=== PATIENT | female | born 1935 | race Caucasian/White ===

== ENCOUNTER 2021-06-20 11:34 | Emergency (ER) | payer MEDICARE, MEDICAID ==
[~2021-06-20] VITALS: Ht 175.3 cm; Wt 70.5 kg
[~2021-06-20 11:34] MED LIST: LIDOcaine 1% W/epiNEPHrine 1:100,000 20ml vial ONE
[2021-06-20] MEDS ORDERED: iohexol 300mg/ml 100ml inj. ONE (12:51)
--- NOTE | 2021-06-20 13:15 | NUR ---
AT BEDSIDE TO PLACE WEBSTERMEGNT. PT TOLERATED WELL. REPEAT XRAY ORDERED FOR 1430. PT NOW REPORTS THAT BREATHING IS LESS PAINFUL, RR 16.
[2021-06-20] MEDS ORDERED: HYDROcodone/acetaminophen 10/325mg tab PO ONE (13:45)
[2021-06-20] MEDS ORDERED: HYDR-3972 PO (13:52)
[2021-06-20] MEDS ORDERED: ONDA4TAB12 PO (13:52)
[2021-06-20 14:30] VITALS: BP 158/76
--- NOTE | 2021-06-20 14:59 | NUR ---
DAUGHTER UPDATED ON PT POC AND STATUS. GIVEN SPECIFIC INSTRUCTIONS TO RETURN TO ED TOMORROW MORNING FOR REPEAT XRAY. THORAVENT REMAINS IN PLACE. PT REPORTS DECREASED PAIN WITH BREATHING. RR EVEN AND UNLABORED.
== END 2021-06-20 15:10 | disposition home or self-care (01) ==
LOC: ER 11:35
DX: S20.229A Contusion of unspecified back wall of thorax, initial encounter (principal); J93.9 Pneumothorax, unspecified; W18.30XA Fall on same level, unspecified, initial encounter; Y93.89 Activity, other specified; Y92.89 Other specified places as the place of occurrence of the external cause; Y99.8 Other external cause status; Z79.899 Other long term (current) drug therapy
CPT/HCPCS: 71045; 71260; 99285; Q9967; J3490

== ENCOUNTER 2021-06-21 07:27 | Emergency (ER) | payer MEDICARE, MEDICAID ==
[~2021-06-21] VITALS: Ht 170.2 cm; Wt 72.0 kg
[~2021-06-21 07:27] MED LIST changes: +HYDR-3972 PO; -LIDOcaine 1% W/epiNEPHrine 1:100,000 20ml vial ONE; +ONDA4TAB12 PO
[2021-06-21 09:37] VITALS: BP 130/32
== END 2021-06-21 09:39 | disposition home or self-care (01) ==
LOC: ER 07:27
DX: J93.9 Pneumothorax, unspecified (principal); Z79.899 Other long term (current) drug therapy; Z97.8 Presence of other specified devices
CPT/HCPCS: 71045; 99283

== ENCOUNTER 2021-06-22 07:22 | Emergency (ER) | payer MEDICARE, MEDICAID ==
[~2021-06-22] VITALS: Ht 167.6 cm; Wt 72.7 kg
[2021-06-22 07:54] VITALS: BP 130/59
--- NOTE | 2021-06-22 08:09 | NUR ---
xray at bedside
--- NOTE | 2021-06-22 08:35 | NUR ---
provider at bedside.
== END 2021-06-22 09:35 | disposition home or self-care (01) ==
LOC: ER 07:23
DX: J93.9 Pneumothorax, unspecified (principal)
CPT/HCPCS: 71045; 99284

== ENCOUNTER 2022-01-09 16:36 | Emergency (ER) | payer MEDICARE, MEDICAID ==
[~2022-01-09] VITALS: Ht 172.7 cm; Wt 70.5 kg
[~2022-01-09 16:36] MED LIST changes: -HYDR-3972 PO
[2022-01-09 18:21] LABS: CLARITY,URINE CLOUDY (Clear); COLOR,URINE YELLOW (Yellow); GLUCOSE, URINE NEGATIVE (Neg); KETONES,URINE TRACE mg/dl (Neg); LEUKOCYTE ESTERASE ,URINE TRACE (Neg); NITRITES, URINE POSITIVE (Neg); OCCULT BLOOD,URINE NEGATIVE (Neg); PROTEIN,URINE TRACE mg/dl (Neg); UROBILINOGEN,URINE 0.2 E.U/dL (0.2-1.0)
[2022-01-09 18:25] LABS: UA COLLECTION TYPE CLN CATCH MIDSTREAM
[2022-01-09 18:28] LABS: BACTERIA,URINE 4+ /HPF (Neg); CAL OXALATE CRYSTALS 3+ /HPF (NEGATIVE); SQUAMOUS EPITHELIAL CELL,UR FEW /LPF (FEW)
[2022-01-09 18:44] LABS: BASOPHILS % (AUTO) 0.4 % (0-1); EOSINOPHILS # (AUTO) 0.1 X10'3 (0-0.9); EOSINOPHILS % (AUTO) 0.6 % (0-6); HEMATOCRIT 41.9 % (35.0-45.0); HEMOGLOBIN 14.5 g/dl (12.0-16.0); LYMPHOCYTES # (AUTO) 1.8 X10'3 (1.1-4.8); LYMPHOCYTES % (AUTO) 17.4 % (21-51); MEAN CORPUSCULAR HEMOGLOBIN 30.6 PG (27.0-31.0); MEAN CORPUSCULAR HGB CONC 34.6 g/dL (33.0-36.5); MEAN CORPUSCULAR VOLUME 88.4 FL (78-98); MEAN PLATELET VOLUME 7.7 FL (7.4-10.4); MONOCYTES # (AUTO) 0.8 X10'3 (0-0.9); MONOCYTES % (AUTO) 7.4 % (2-12); NEUTROPHILS # (AUTO) 7.6 X10'3 (1.8-7.7); NEUTROPHILS % (AUTO) 74.2 % (42-75); PLATELET COUNT 227 X10'3 (140-440); RED BLOOD COUNT 4.73 X10'6 (4.20-5.60); RED CELL DISTRIBUTION WIDTH 13.1 % (11.5-14.5); WHITE BLOOD COUNT 10.2 X10'3 (4.5-11.0)
[2022-01-09 18:54] LABS: ALANINE AMINOTRANSFERASE 14 U/L (12-78); ALBUMIN 4.1 G/DL (3.4-5.0); ALBUMIN/GLOBULIN RATIO 1.4 (1.1-1.5); ALKALINE PHOSPHATASE 72 IU/L (46-116); ANION GAP 8 (8-16); ASPARTATE AMINO TRANSFERASE 18 U/L (10-37); BILIRUBIN,TOTAL 0.7 MG/DL (0.1-1.0); BLOOD UREA NITROGEN 19 MG/DL (7-18); BUN/CREATININE RATIO 20.9 (6.6-38.0); CALCIUM 9.6 MG/DL (8.5-10.1); CHLORIDE 103 MMOL/L (99-107); CREATININE 0.91 MG/DL (0.40-0.90); GLUCOSE 117 MG/DL (70-104); POTASSIUM 3.7 MMOL/L (3.5-5.1); SODIUM 140 MMOL/L (135-145); TOTAL CARBON DIOXIDE 29.2 MMOL/L (24-32); TOTAL PROTEIN 7.1 G/DL (6.4-8.2); eGFR 58 ML/MIN
[2022-01-09 20:04] VITALS: BP 165/73
[2022-01-09] MEDS ORDERED: cephalexin 500mg capsule PO ONE (20:30)
[2022-01-09] MEDS ORDERED: CEPH500C81 PO (21:56)
== END 2022-01-09 22:12 | disposition home or self-care (01) ==
LOC: ER 16:37
DX: N30.00 Acute cystitis without hematuria (principal); R41.0 Disorientation, unspecified; Z79.899 Other long term (current) drug therapy
CPT/HCPCS: 36415; 70450; 80053; 81001; 83605; 84145; 85025; 87077; 87088; 87186; 99284

== ENCOUNTER 2022-01-14 09:02 | Emergency (ER) | payer MEDICARE, MEDICAID ==
[~2022-01-14] VITALS: Ht 170.2 cm; Wt 70.0 kg
[~2022-01-14 09:02] MED LIST changes: +CEPH500C81 PO
[2022-01-14] MEDS ORDERED: normal saline 1000ML IV soln IV ONE (09:15)
[2022-01-14] MEDS ORDERED: acetaminophen 325mg tablet PO STA (09:15)
--- NOTE | 2022-01-14 09:20 | NUR ---
ishan cervantes in the [facility],called pharmacy. Addendum: 01/14/22 at 0920 by CHARLIE incorrect patient.
[2022-01-14 09:47] LABS: BASOPHILS % (AUTO) 0.6 % (0-1); EOSINOPHILS # (AUTO) 0.1 X10'3 (0-0.9); EOSINOPHILS % (AUTO) 1.7 % (0-6); HEMATOCRIT 40.7 % (35.0-45.0); HEMOGLOBIN 13.8 g/dl (12.0-16.0); LYMPHOCYTES # (AUTO) 1.2 X10'3 (1.1-4.8); LYMPHOCYTES % (AUTO) 17.6 % (21-51); MEAN CORPUSCULAR VOLUME 88.2 FL (78-98); MEAN PLATELET VOLUME 7.7 FL (7.4-10.4); MONOCYTES # (AUTO) 0.6 X10'3 (0-0.9); NEUTROPHILS # (AUTO) 5.1 X10'3 (1.8-7.7); NEUTROPHILS % (AUTO) 72.1 % (42-75); PLATELET COUNT 238 X10'3 (140-440); RED BLOOD COUNT 4.61 X10'6 (4.20-5.60); RED CELL DISTRIBUTION WIDTH 13.2 % (11.5-14.5)
[2022-01-14 09:56] LABS: ALANINE AMINOTRANSFERASE 8 U/L (12-78); ALBUMIN 3.7 G/DL (3.4-5.0); ALBUMIN/GLOBULIN RATIO 1.4 (1.1-1.5); ALKALINE PHOSPHATASE 66 IU/L (46-116); ANION GAP 6 (8-16); ASPARTATE AMINO TRANSFERASE 19 U/L (10-37); BILIRUBIN,TOTAL 0.5 MG/DL (0.1-1.0); BLOOD UREA NITROGEN 9 MG/DL (7-18); BUN/CREATININE RATIO 11.7 (6.6-38.0); CALCIUM 9.2 MG/DL (8.5-10.1); CHLORIDE 104 MMOL/L (99-107); CREATININE 0.77 MG/DL (0.40-0.90); GLUCOSE 143 MG/DL (70-104); POTASSIUM 3.7 MMOL/L (3.5-5.1); SODIUM 137 MMOL/L (135-145); TOTAL CARBON DIOXIDE 27.4 MMOL/L (24-32); TOTAL PROTEIN 6.4 G/DL (6.4-8.2); eGFR 71 ML/MIN
[2022-01-14 10:21] LABS: CLARITY,URINE CLEAR (Clear); COLOR,URINE YELLOW (Yellow); GLUCOSE, URINE NEGATIVE (Neg); KETONES,URINE NEGATIVE (Neg); LEUKOCYTE ESTERASE ,URINE NEGATIVE (Neg); NITRITES, URINE NEGATIVE (Neg); OCCULT BLOOD,URINE TRACE-INTACT (Neg); PH,URINE 7.5 (4.8-8.0); PROTEIN,URINE NEGATIVE (Neg); UROBILINOGEN,URINE 0.2 E.U/dL (0.2-1.0)
[2022-01-14 10:36] LABS: UA COLLECTION TYPE STRAIGHT CATH
[2022-01-14 10:38] LABS: BACTERIA,URINE NONE SEEN /HPF (Neg); MUCUS STRANDS NONE SEEN /LPF (Neg); SQUAMOUS EPITHELIAL CELL,UR FEW /LPF (FEW); WBC,URINE 0-4 /HPF (0-4)
--- NOTE | 2022-01-14 12:34 | NUR ---
relieving RN for break, pt is is resting quietly on family silvia at bedside,
[2022-01-14 12:35] VITALS: BP 161/72
== END 2022-01-14 13:00 | disposition home or self-care (01) ==
LOC: ER 09:02
DX: R45.1 Restlessness and agitation (principal); F03.90 Unspecified dementia, unspecified severity, without behavioral disturbance, psychotic disturbance, mood disturbance, and anxiety; N39.0 Urinary tract infection, site not specified; F41.9 Anxiety disorder, unspecified; F32.A Depression, unspecified; Z79.2 Long term (current) use of antibiotics
CPT/HCPCS: 36415; 80053; 81001; 83605; 84145; 85025; 87040; 96360; 96361; 99283; J7030; J7040; A4353

== ENCOUNTER 2022-06-11 21:11 | Emergency (ER) | payer MEDICARE, MEDICAID ==
[~2022-06-11 21:11] MED LIST changes: -CEPH500C81 PO
[2022-06-11 23:46] VITALS: BP 137/77
[2022-06-11 23:54] LABS: COLOR,URINE YELLOW (Yellow); GLUCOSE, URINE NEGATIVE (Neg); KETONES,URINE NEGATIVE (Neg); LEUKOCYTE ESTERASE ,URINE NEGATIVE (Neg); NITRITES, URINE NEGATIVE (Neg); OCCULT BLOOD,URINE NEGATIVE (Neg); PROTEIN,URINE NEGATIVE (Neg); UROBILINOGEN,URINE 0.2 E.U/dL (0.2-1.0)
[2022-06-11 23:59] LABS: CLARITY,URINE SLIGHTLY CLOUDY (Clear); UA COLLECTION TYPE STRAIGHT CATH
[2022-06-12 00:01] LABS: BACTERIA,URINE FEW /HPF (Neg); MUCUS STRANDS FEW /LPF (Neg); RBC,URINE 0-2 /HPF (0-2); RENAL CELLS, URINE FEW /HPF; SQUAMOUS EPITHELIAL CELL,UR FEW /LPF (FEW); WBC CLUMPS,URINE FEW /HPF (NEGATIVE)
[2022-06-12] MEDS ORDERED: CEPH-585 PO (00:43)
--- NOTE | 2022-06-12 01:12 | NUR ---
ATTEMPTED TO CALL DAUGHTERS NUMBER THAT IS ON FILE TO PLAN FOR D/C. LEFT VOICEMAIL REQUESTING A CALL BACK. ATTEMPTED TO CALL A NUMBER THAT IS LISTED PTS HOUSE PHONE BUT NO ANSWER AND UNABLE TO LEAVE VOICEMAIL.
--- NOTE | 2022-06-12 07:39 | NUR ---
PTS DAUGHTER CHRIS CALLED AND INQUIRED ON HER BEING CALLED LAST NIGHT. INFORMED DAUGHTER HER MOTHER IS HERE AND UNABLE TO STATE WHERE SHE LIVES. REPORT FROM DAUGHTER PT IS AT [facility] BUT IS COMING HERE TO PICK MOTHER UP. CHRIS L[place]ES IN [place] AND REPORTS SHE SHOULD BE HERE IN ABOUT AN HOUR.
--- NOTE | 2022-06-12 08:05 | NUR ---
PT AMBULATED TO RESTROOM AND BACK TO ROOM. PT INCONT OF URINE AND WAS ASSISTED CHANGING INTO DISPOSABLE BREIF AND NEW DRY SWEATPANTS.
== END 2022-06-12 08:57 | disposition home or self-care (01) ==
LOC: ER 21:11
DX: S09.8XXA Other specified injuries of head, initial encounter (principal); N39.0 Urinary tract infection, site not specified; F03.90 Unspecified dementia, unspecified severity, without behavioral disturbance, psychotic disturbance, mood disturbance, and anxiety; W18.39XA Other fall on same level, initial encounter; Y93.89 Activity, other specified; Y92.89 Other specified places as the place of occurrence of the external cause; Y99.8 Other external cause status
CPT/HCPCS: 70450; 81001; 81003; 99284

== ENCOUNTER 2022-12-23 14:58 | Observation (INO) | payer MEDICARE, MEDICAID ==
[~2022-12-23] VITALS: Ht 167.6 cm; Wt 72.5 kg
[~2022-12-23 14:58] MED LIST changes: +CEPH-585 PO
[2022-12-23 19:21] LABS: BASOPHILS % (AUTO) 0.3 % (0-1); EOSINOPHILS # (AUTO) 0.1 X10'3 (0-0.9); EOSINOPHILS % (AUTO) 0.7 % (0-6); HEMATOCRIT 41.5 % (35.0-45.0); HEMOGLOBIN 14.1 g/dl (12.0-16.0); LYMPHOCYTES # (AUTO) 0.9 X10'3 (1.1-4.8); LYMPHOCYTES % (AUTO) 10.3 % (21-51); MEAN CORPUSCULAR HEMOGLOBIN 30.8 PG (27.0-31.0); MEAN CORPUSCULAR HGB CONC 33.9 g/dL (33.0-36.5); MEAN CORPUSCULAR VOLUME 90.6 FL (78-98); MEAN PLATELET VOLUME 8.9 FL (7.4-10.4); MONOCYTES # (AUTO) 0.5 X10'3 (0-0.9); MONOCYTES % (AUTO) 6.4 % (2-12); NEUTROPHILS # (AUTO) 6.9 X10'3 (1.8-7.7); NEUTROPHILS % (AUTO) 82.3 % (42-75); PLATELET COUNT 235 X10'3 (140-440); RED BLOOD COUNT 4.58 X10'6 (4.20-5.60); WHITE BLOOD COUNT 8.4 X10'3 (4.5-11.0)
[2022-12-23 19:28] LABS: ALANINE AMINOTRANSFERASE 22 U/L (12-78); ALBUMIN 3.1 G/DL (3.4-5.0); ALKALINE PHOSPHATASE 67 IU/L (46-116); ANION GAP 7 (8-16); ASPARTATE AMINO TRANSFERASE 17 U/L (10-37); BILIRUBIN,TOTAL 0.5 MG/DL (0.1-1.0); BLOOD UREA NITROGEN 18 MG/DL (7-18); BUN/CREATININE RATIO 16.5 (10.0-20.0); CHLORIDE 105 MMOL/L (99-107); CREATININE 1.09 MG/DL (0.40-0.90); GLUCOSE 137 MG/DL (70-104); POTASSIUM 4.1 MMOL/L (3.5-5.1); SODIUM 140 MMOL/L (135-145); TOTAL CARBON DIOXIDE 27.9 MMOL/L (24-32); TOTAL PROTEIN 6.3 G/DL (6.4-8.2); eCRCL 33 ML/MIN; eGFR 47 ML/MIN
[2022-12-23 19:36] LABS: PRO BRAIN NATRIURETIC PEPTIDE 204 PG/ML (0-450)
[2022-12-23] MEDS ORDERED: potassium Cl 40MEQ/1/2NS 520ml 520 ML IV PRN (20:15)
[2022-12-23] MEDS ORDERED: acetaminophen 325mg tablet PO PRN ×2 (20:15)
[2022-12-23] MEDS ORDERED: magnesium 2GM in 50ml NS 50 ML IV PRN (20:15)
[2022-12-23] MEDS ORDERED: magnesium 4gm in 100ml NS 100 ML IV PRN (20:15)
[2022-12-23] MEDS ORDERED: potassium Cl 20 mEq SR tablet PO PRN ×2 (20:15)
[2022-12-23] MEDS ORDERED: magnesium Cl slow-release 64mg tablet PO PRN (20:15)
[2022-12-23] MEDS ORDERED: normal saline 1000ml 1,000 ML IV SCH (20:15)
[2022-12-23] MEDS ORDERED: ondansetron/PF 4mg/2ml inj IV PRN (20:15)
[2022-12-23] MEDS ORDERED: Melatonin 3mg tablet PO STA (22:18)
--- NOTE | 2022-12-23 23:30 | NUR ---
pt placed onto in-patient bed
--- NOTE | 2022-12-24 05:12 | NUR ---
periwick applied bed linen changed
--- NOTE | 2022-12-24 06:46 | NUR ---
CALLED REPORT TO [facility], THEY ARE UNABLE TO LOCATE THE RECEIVING NURSE AND WILL CALL BACK.
[2022-12-24 07:00] LABS: BILIRUBIN,URINE NEGATIVE (Neg); CLARITY,URINE SLIGHTLY CLOUDY (Clear); COLOR,URINE YELLOW (Yellow); GLUCOSE, URINE NEGATIVE (Neg); KETONES,URINE TRACE mg/dl (Neg); LEUKOCYTE ESTERASE ,URINE NEGATIVE (Neg); NITRITES, URINE NEGATIVE (Neg); OCCULT BLOOD,URINE TRACE-INTACT (Neg); PROTEIN,URINE NEGATIVE (Neg); UROBILINOGEN,URINE 0.2 E.U/dL (0.2-1.0)
--- NOTE | 2022-12-24 07:01 | NUR ---
SECOND ATTEMPT TO CALL REPORT, UNABLE TO LOCATE RN. THIS RN REQUESTED TO GIVE REPORT TO CHARGE NURSE PT IS OVERDUE TO GO TO FLOOR AT THIS TIME.
[2022-12-24 07:05] LABS: UA COLLECTION TYPE STRAIGHT CATH
[2022-12-24 07:06] LABS: BACTERIA,URINE 4+ /HPF (Neg); RBC,URINE 0-2 /HPF (0-2); SQUAMOUS EPITHELIAL CELL,UR NONE SEEN /LPF (FEW); WBC,URINE 0-4 /HPF (0-4)
--- NOTE | 2022-12-24 07:14 | NUR ---
Patient in room ED 14. I have received report from SHELLY HERMAN IN ED and had the opportunity to ask questions and assume patient care.
[2022-12-24 07:20] VITALS: BP 168/80; PULSE 87; RESP 18; TEMP 97.4; O2SAT 95
--- NOTE | 2022-12-24 07:42 | NUR ---
Page Sent promotional table spacer PAGER ID: [phone] MESSAGE: [phone] B CHAPIS, I JUST GOT THIS PT FROM ER, HER BP IS 168/80 HR 87. DO YOU WANT HER TO HAVE ANYTHING FOR HER BP? THERE IS NOTHING IN THE EMAR. RICHIE [id number]
[2022-12-24 08:00] VITALS: RESP 18; O2SAT 94
[2022-12-24] MEDS ORDERED: CefTRIAXone/D5W-Rocephin 1gm 50 ML IV ONE (08:05)
--- NOTE | 2022-12-24 08:30 | NUR ---
md aware of increased bp at this time, no new orders at this time.
--- NOTE | 2022-12-24 08:54 | NUR ---
Page Sent PAGER ID: [phone] MESSAGE: [phone] b harvey, please call me i need something to give this pt she is very agitated. lisa Patel
[2022-12-24] MEDS ORDERED: ziprasidone IM 20mg inj **IM only IM ONE (09:00)
[2022-12-24] MEDS: heparin, porcine 5000 units/ml vial SQ SCH ×2 (09:41→21:11)
[2022-12-24 11:00] VITALS: BP_SYST 158; BP_SYST 162; BP_DIAS 68; BP_DIAS 82; PULSE 79; PULSE 80; RESP 14; RESP 18; TEMP 98; TEMP 99.1; O2SAT 93; O2SAT 94
[2022-12-24 12:12] LABS: BASOPHILS % (AUTO) 0.4 % (0-1); EOSINOPHILS # (AUTO) 0.1 X10'3 (0-0.9); EOSINOPHILS % (AUTO) 1.2 % (0-6); HEMATOCRIT 46.9 % (35.0-45.0); HEMOGLOBIN 15.7 g/dl (12.0-16.0); LYMPHOCYTES # (AUTO) 1.3 X10'3 (1.1-4.8); LYMPHOCYTES % (AUTO) 14.9 % (21-51); MEAN CORPUSCULAR HEMOGLOBIN 30.3 PG (27.0-31.0); MEAN CORPUSCULAR HGB CONC 33.5 g/dL (33.0-36.5); MEAN CORPUSCULAR VOLUME 90.6 FL (78-98); MEAN PLATELET VOLUME 8.5 FL (7.4-10.4); MONOCYTES # (AUTO) 0.7 X10'3 (0-0.9); MONOCYTES % (AUTO) 7.7 % (2-12); NEUTROPHILS # (AUTO) 6.7 X10'3 (1.8-7.7); NEUTROPHILS % (AUTO) 75.8 % (42-75); PLATELET COUNT 227 X10'3 (140-440); RED BLOOD COUNT 5.17 X10'6 (4.20-5.60); RED CELL DISTRIBUTION WIDTH 12.9 % (11.5-14.5); WHITE BLOOD COUNT 8.9 X10'3 (4.5-11.0)
[2022-12-24] MEDS ORDERED: MELA1TAB28 PO (12:52)
[2022-12-24] MEDS ORDERED: DONE-46 PO (12:52)
[2022-12-24] MEDS ORDERED: MELA3TAB39 PO (12:53)
[2022-12-24 12:55] LABS: ALANINE AMINOTRANSFERASE 18 U/L (12-78); ALBUMIN 3.5 G/DL (3.4-5.0); ALKALINE PHOSPHATASE 78 IU/L (46-116); ANION GAP 13 (8-16); ASPARTATE AMINO TRANSFERASE 24 U/L (10-37); BLOOD UREA NITROGEN 14 MG/DL (7-18); BUN/CREATININE RATIO 18.2 (10.0-20.0); CALCIUM 9.8 MG/DL (8.5-10.1); CHLORIDE 105 MMOL/L (99-107); CREATININE 0.77 MG/DL (0.40-0.90); GLUCOSE 143 MG/DL (70-104); SODIUM 140 MMOL/L (135-145); TOTAL CARBON DIOXIDE 22.5 MMOL/L (24-32); TOTAL PROTEIN 6.9 G/DL (6.4-8.2); eCRCL 46 ML/MIN; eGFR 71 ML/MIN
[2022-12-24 12:58] LABS: POTASSIUM 3.7 MMOL/L (3.5-5.1)
[2022-12-24] MEDS ORDERED: POTASSIUM BICARB 20meq eff tab 20 MEQ TABLET.EFF PO PRN (14:35)
[2022-12-24 16:00] VITALS: BP 119/68; PULSE 72; RESP 12; TEMP 97.8; O2SAT 95
[2022-12-24 18:00] VITALS: BP 148/81; PULSE 102; RESP 18; TEMP 98.7; O2SAT 95
--- NOTE | 2022-12-24 18:30 | NUR ---
Problems reprioritized. Patient report given, questions answered & plan of care reviewed with lobito robin rn.
[2022-12-24] MEDS ORDERED: ziprasidone IM 20mg inj **IM only IM PRN (18:40)
--- NOTE | 2022-12-24 19:45 | NUR ---
Patient in room [facility] 4021. I have received report from BATSHEVA Hanson and had the opportunity to ask questions and assume patient care.
[2022-12-24] MEDS ORDERED: magnesium hydroxide 30ml (MOM) UD suspension PO ONE (20:00)
[2022-12-24] MEDS ORDERED: Melatonin 3mg tablet PO SCH (21:00)
[2022-12-24 22:00] VITALS: BP 159/73; PULSE 72; RESP 20; TEMP 98.7; O2SAT 97
[2022-12-25 02:00] VITALS: BP 145/78; PULSE 60; RESP 16; TEMP 98.2; O2SAT 95
[2022-12-25 06:00] VITALS: BP 160/77; PULSE 66; RESP 16; TEMP 97.2; O2SAT 99
--- NOTE | 2022-12-25 06:20 | NUR ---
Problems reprioritized. Patient report given, questions answered & plan of care reviewed with BATSHEVA Kat.
--- NOTE | 2022-12-25 06:54 | NUR ---
Patient in room [facility] 4021. I have received report from tanvi voss and had the opportunity to ask questions and assume patient care.
[2022-12-25 07:44] LABS: BASOPHILS % (AUTO) 0.4 % (0-1); EOSINOPHILS # (AUTO) 0.1 X10'3 (0-0.9); EOSINOPHILS % (AUTO) 2.1 % (0-6); HEMATOCRIT 44.4 % (35.0-45.0); HEMOGLOBIN 14.9 g/dl (12.0-16.0); LYMPHOCYTES # (AUTO) 1.1 X10'3 (1.1-4.8); LYMPHOCYTES % (AUTO) 15.8 % (21-51); MEAN CORPUSCULAR HEMOGLOBIN 30.3 PG (27.0-31.0); MEAN CORPUSCULAR HGB CONC 33.5 g/dL (33.0-36.5); MEAN CORPUSCULAR VOLUME 90.3 FL (78-98); MEAN PLATELET VOLUME 8.6 FL (7.4-10.4); MONOCYTES # (AUTO) 0.6 X10'3 (0-0.9); MONOCYTES % (AUTO) 8.9 % (2-12); NEUTROPHILS # (AUTO) 5.2 X10'3 (1.8-7.7); NEUTROPHILS % (AUTO) 72.8 % (42-75); PLATELET COUNT 236 X10'3 (140-440); RED BLOOD COUNT 4.92 X10'6 (4.20-5.60); RED CELL DISTRIBUTION WIDTH 12.9 % (11.5-14.5); WHITE BLOOD COUNT 7.1 X10'3 (4.5-11.0)
[2022-12-25 07:57] LABS: ALANINE AMINOTRANSFERASE 27 U/L (12-78); ALBUMIN 3.3 G/DL (3.4-5.0); ALBUMIN/GLOBULIN RATIO 1.1 (1.1-1.5); ALKALINE PHOSPHATASE 71 IU/L (46-116); ANION GAP 8 (8-16); ASPARTATE AMINO TRANSFERASE 23 U/L (10-37); BILIRUBIN,TOTAL 0.5 MG/DL (0.1-1.0); BLOOD UREA NITROGEN 18 MG/DL (7-18); BUN/CREATININE RATIO 26.1 (10.0-20.0); CALCIUM 9.5 MG/DL (8.5-10.1); CHLORIDE 107 MMOL/L (99-107); CREATININE 0.69 MG/DL (0.40-0.90); GLUCOSE 128 MG/DL (70-104); POTASSIUM 3.7 MMOL/L (3.5-5.1); SODIUM 143 MMOL/L (135-145); TOTAL CARBON DIOXIDE 27.9 MMOL/L (24-32); TOTAL PROTEIN 6.3 G/DL (6.4-8.2); eCRCL 52 ML/MIN; eGFR 80 ML/MIN
[2022-12-25] MEDS ORDERED: CefTRIAXone/D5W-Rocephin 1gm 50 ML IV SCH (08:00)
[2022-12-25] MEDS ORDERED: donepezil 5mg tablet PO SCH (08:00)
[2022-12-25] MEDS: heparin, porcine 5000 units/ml vial SQ SCH (09:01)
[2022-12-25 10:00] VITALS: BP 140/66; PULSE 80; RESP 18; TEMP 97.8; O2SAT 95
[2022-12-25] MEDS ORDERED: OLAN-1 PO (11:58)
--- NOTE | 2022-12-25 14:22 | NUR ---
pt stable for dc, iv dc cannula is intact, all belongings taken, all dc info gone over with daughter and signed. daughter is the primary caregiver and was taking care of her before admit. she was provided with resources from and will have HH arranged by case management. pt was transferred into a wheelchair [facility] left in a private vehicle with daughter to go home. no meds in pharmacy.
== END 2022-12-25 14:05 | disposition home or self-care (01) ==
LOC: ER 14:59 → INTOOBSV 20:17 → ED HOLD 20:17 → ORTHO 4S 12-24 07:15
PROVIDERS: ADMIT Internal Medicine; ATTEND Family Medicine
DX: G93.41 Metabolic encephalopathy (principal); F03.94 Unspecified dementia, unspecified severity, with anxiety; N17.9 Acute kidney failure, unspecified; N18.30 Chronic kidney disease, stage 3 unspecified; J45.909 Unspecified asthma, uncomplicated; G51.0 Bell's palsy; Z79.899 Other long term (current) drug therapy
CPT/HCPCS: 36415; 70450; 70544; 70551; 71045; 80053; 81001; 83605; 83880; 84484; 85025; 87040; 87081; 87088; 93005; 93880; 96361; 96365; 96366; 96372; 99285; G0378; J0696; J1644; J3486; J7030